=== PATIENT | male | born 1950 | race Caucasian/White ===

== ENCOUNTER 2018-10-11 08:00 | Inpatient (IN) ==
--- NOTE | 2018-10-11 09:06 | EKG Report ---
Test Performed on : 10/11/2018 08:44:57 AM Test Reason : PAT Blood Pressure : / mmHG Vent. Rate : 060 BPM Atrial Rate : 060 BPM P-R Int : 174 ms QRS Dur : 102 ms QT Int : 406 ms P-R-T Axes : 056 069 052 degrees QTc Int : 406 ms Normal sinus rhythm. Normal ECG When compared with ECG of 24-MAY-2012 11:57, No significant change was found Confirmed by Ben Escobedo MD ([id number]) on 10/11/2018 6:07:00 PM
[2018-10-11 09:15] LABS: URINE SOURCE CLEAN CATCH
[2018-10-11 09:21] LABS: BASO# 0.04 X1000 (0.0-0.2); BASO% 0.6 % (0.0-0.8); EOS# 0.23 X1000 (0.0-0.7); EOS% 3.2 % (0.0-10.0); HEMATOCRIT 51.7 % (42.0-52.0); HEMOGLOBIN 17.5 g/dL (14.0-18.0); LYMPH# 1.37 X1000 (1.2-3.4); MCH 29.6 PG (27-31); MCHC 33.8 g/dL (33-37); MCV 87.5 FL (81-99); MONO# 0.63 X1000 (0.11-0.59); MONO% 8.7 % (1.7-9.3); MPV 10.8 FL (7.4-10.4); NEUT# 4.94 X1000 (1.4-6.5); NEUT% 68.5 % (42.2-75.2); PLT 171 X1000 (130-400); RBC 5.91 XMIL (4.7-6.1); RDW 14.9 % (11.5-14.5); WBC 7.21 X1000 (4.8-10.8)
[2018-10-11 09:24] LABS: BILIRUBIN URINE NEGATIVE (NEGATIVE); BLOOD URINE NEGATIVE (NEGATIVE); COLOR YELLOW; GLUCOSE URINE NEGATIVE (NEGATIVE); KETONE URINE NEGATIVE (NEGATIVE); LEUKOCYTES URINE NEGATIVE (NEGATIVE); NITRITE URINE NEGATIVE (NEGATIVE); PH URINE 5.5; PROTEIN URINE NEGATIVE (NEGATIVE); SP GRAVITY URINE 1.018; TURBIDITY URINE CLEAR (CLEAR); UR EPITHELIAL CELLS <10 /HPF (<10); URINE BACTERIA NEGATIVE /HPF; URINE RBC <10 /HPF (<10); URINE WBC <10 /HPF (<10); UROBILINOGEN URINE NORMAL (NORMAL)
[2018-10-11 09:30] LABS: INR 0.9; PROTIME 12.8 Seconds (11.0-16.0)
[2018-10-11 09:31] LABS: PTT 27.1 Seconds (22.3-41.8)
[2018-10-11 09:49] LABS: AGAP 7; BUN 17 mg/dL (8-22); CALCIUM 9.3 mg/dL (8.8-10.2); CHLORIDE 101 mmol/L (98-107); COSMO 286; ESTIMATED GFR > 60; GLUCOSE 127 mg/dL (70-104); SODIUM 142 mmol/L (136-145); TCO2 34 mmol/L (25-35)
[2018-10-25] MEDS ORDERED: PEPCID ONE (06:54)
[2018-10-25] MEDS ORDERED: CELEBREX ONE (06:54)
[2018-10-25] MEDS ORDERED: LYRICA ONE (06:54)
[2018-10-25] MEDS ORDERED: KEFZOL 1 GM/D5W 2 GM/100 ML IVPB ONE (06:54)
[2018-10-25] MEDS ORDERED: LR 1,000 ML ONE (06:54)
[2018-10-25] MEDS ORDERED: COLACE ONE (06:54)
[2018-10-25] MEDS ORDERED: REGLAN ONE (06:54)
[2018-10-25] MEDS ORDERED: DIPRIVAN 1% ONE (07:50)
[2018-10-25] MEDS ORDERED: NORCURON ONE (07:51)
[2018-10-25] MEDS ORDERED: QUELICIN (DOSE) ONE (07:51)
[2018-10-25] MEDS ORDERED: DURAMORPH ONE (07:52)
[2018-10-25] MEDS ORDERED: TORADOL ONE (07:52)
[2018-10-25] MEDS ORDERED: MARCAINE 0.25% PF ONE (07:52)
[2018-10-25] MEDS ORDERED: NEOSPORIN G.U. IRRIGANT ONE (07:53)
[2018-10-25] MEDS ORDERED: CYKLOKAPRON 1,000 MG/NS 1,000 MG/100 ML IVPB ONE (07:53)
[2018-10-25] MEDS ORDERED: SODIUM CHLORIDE 0.9% ONE (07:53)
[2018-10-25] MEDS ORDERED: EXPAREL 1.3% ONE (07:53)
[2018-10-25] MEDS ORDERED: FENTANYL ONE ×2 (07:56→08:42)
[2018-10-25] MEDS ORDERED: SODIUM CHLORIDE 0.9% 10 ML ONE (08:21)
[2018-10-25] MEDS ORDERED: EPHEDRINE ONE (08:21)
[2018-10-25] MEDS ORDERED: ROBINUL ONE (09:15)
[2018-10-25] MEDS ORDERED: NEOSTIGMINE ONE (09:15)
[2018-10-25] MEDS ORDERED: ZOFRAN ONE (09:15)
[2018-10-25] MEDS ORDERED: D5W 1,000 ML ONE (09:49)
[2018-10-25] MEDS: DILAUDID ONE ×2 (10:12→10:21)
[2018-10-25] MEDS ORDERED: OXY IR ONE (10:25)
--- NOTE | 2018-10-25 10:29 | Diag Imaging Result Doc PS360 ---
EXAM: SHOULDER 1 VIEW LEFT 10/25/2018 HISTORY: post op TECHNIQUE: Left shoulder upright portable COMMENT: There has been a total shoulder arthroplasty. There is no evidence of acute fracture. IMPRESSION: Postsurgical changes. Electronically signed by Kayden Kumar 10/25/2018 10:27 AM
[2018-10-25] MEDS ORDERED: ZOFRAN PO PRN (11:15)
[2018-10-25] MEDS ORDERED: MORPHINE IV PRN ×3 (11:15)
[2018-10-25] MEDS ORDERED: OXY IR PO PRN (11:15)
[2018-10-25] MEDS: D5W 1,000 ML IV SCH (11:23)
--- NOTE | 2018-10-25 13:43 | OPERATIVE NOTE ---
PROCEDURE DATE: 10/25/2018 PREOPERATIVE DIAGNOSIS: Left glenohumeral arthritis with recurrent rotator cuff tear. PROCEDURE: Left reverse shoulder arthroplasty with DePuy Delta Xtend size 12 press-fit stem, 42, + 3 humeral cup, a 42 eccentric Glenosphere, and a standard Metaglene. SURGEON: Luther Burgos MD. INVESTOR RELATIONS SPECIALIST: Hayley Hernandez SECOND SALES EXPERT HOME THEATER: Hugo Hoyt and Avtar De La Cruz, physician accounting manager assistant controller student. ANESTHESIA: General. IV FLUIDS: 1100 mL lactated Ringer's. ESTIMATED BLOOD LOSS: 150 mL. COMPLICATIONS: None. INDICATIONS: The patient is a 68-year-old male with a chronic history of pain and discomfort of the left shoulder. He is status post rotator cuff repair in 2003. X-rays and MR arthrogram revealed glenohumeral arthritis with recurrent rotator cuff tear. Given patient's findings, recommendation to proceed with left reverse total shoulder arthroplasty was offered. Risks and benefits of surgery were explained, including the risks of anesthesia, , bleeding, infection, failure to relieve pain, postop stiffness, nerve injury, blood clots, and other imponderables. All questions were answered. The patient and family wish to proceed with the surgery. DETAILS OF OPERATION: The patient was taken to the operating room and placed supine on the operating table. Once adequate anesthesia was obtained, patient was placed in semi-Sanchez beach chair position. The left shoulder was subsequently prepped and draped in usual sterile fashion. A standard deltopectoral incision was made with skin knife. Hemostasis was obtained using electrocautery. The deltopectoral interval was then developed. Retractors then placed. The clavipectoral fascia was elevated and Drummond retractor was placed deep to the conjoined tendon. Attention was then turned to the subscapularis tendon. Stay suture was placed. Approximately 1 cm medial to the insertion, it was released. The shoulder was then dislocated anteriorly. Further release of the posterior superior aspect of the rotator cuff was performed. A starting reamer was then passed in the intramedullary canal. Sequential reaming was conducted up to size 12. Intramedullary proximal humeral cutting block was pinned in position. The humeral head was then resected. A small inferior osteophyte was removed with a rongeur, and a protective disk was then placed. Attention then turned to the glenoid. Circumferential dissection performed with a deep knife. A guide was then placed in position. Guide pin was placed. Reaming was then conducted. Central hole was then dilated. The guide pins removed. The wound was copiously irrigated with antibiotic pulsatile lavage. A standard Metaglene was then impacted in position. Two locking screws were placed, and two nonlocking screws had good purchase. The wound was copiously once again. A 42 eccentric Glenosphere was then placed with the eccentricity placed inferiorly. After this had been performed, attention was then turned to the proximal humerus. The intramedullary guide was placed in position. The proximal humerus was reamed. After removing this, the wound was copiously irrigated with antibiotic pulsatile lavage. A size 12 Delta Xtend press-fit stem was impacted position approximately 15 degrees of retroversion. Trial cup size 42+ 3 humeral cup had excellent stability and range of motion. Trial cup was removed. The wound was copiously irrigated once again. A 42+ 3 humeral cup was then impacted. The shoulder reduced and carried through range of motion and excellent stability and range of motion. Wound was copiously irrigated once again. Exparel was placed in the deep soft tissue. #2 FiberWire was used to repair the subscapularis tendon. Irrigation was performed once again. The remaining Exparel was placed in the remaining portion of deep soft tissue, as well as subcutaneous tissue. Final irrigation was then conducted. The 2-0 Vicryl was then used for subcutaneous tissue followed by running 2-0 Prolene. Benzoin and Steri-Strips applied. Adaptic, sterile 4 x 4, ABD pad, and tape to the left shoulder followed by shoulder immobilizer. All counts were correct. Patient tolerated procedure well, and was transferred to recovery room in stable condition. cc: Luther Burgos MD
[2018-10-25] MEDS ORDERED: CYKLOKAPRON 1,000 MG in NS 100 ML IV ONE (14:30)
[2018-10-25] MEDS: KEFZOL 2 GM/D5W 2 GM/50 ML IVPB IV SCH (15:01)
[2018-10-25] MEDS: OXY IR PO PRN ×2 (15:24→20:30)
[2018-10-25] MEDS: LOPRESSOR PO SCH ×2 (20:30→20:33)
[2018-10-25] MEDS: PERIDEX MT SCH (20:30)
[2018-10-25] MEDS ORDERED: LIPITOR PO SCH (21:00)
[2018-10-26] MEDS: D5W 1,000 ML IV SCH ×2 (00:11→02:07)
[2018-10-26] MEDS: OXY IR PO PRN ×3 (00:11→08:57)
[2018-10-26] MEDS: KEFZOL 2 GM/D5W 2 GM/50 ML IVPB IV SCH (00:11)
[2018-10-26 06:32] LABS: HEMOGLOBIN 13.6 g/dL (14.0-18.0)
[2018-10-26 06:51] LABS: AGAP 8; BUN 9 mg/dL (8-22); CALCIUM 7.9 mg/dL (8.8-10.2); CHLORIDE 98 mmol/L (98-107); COSMO 270; ESTIMATED GFR > 60; GLUCOSE 154 mg/dL (70-104); POTASSIUM 3.3 mmol/L (3.5-5.1); SODIUM 134 mmol/L (136-145); TCO2 28 mmol/L (25-35)
[2018-10-26 07:52] VITALS: BP 125/70
[2018-10-26] MEDS: PERIDEX MT SCH (08:58)
[2018-10-26] MEDS ORDERED: LOPRESSOR PO SCH (09:00)
[2018-10-26] MEDS ORDERED: ASPIRIN EC PO SCH (09:00)
--- NOTE | 2018-10-26 10:14 | ORTHOPAEDICS PROGRESS NOTE ---
DATE: 10/26/2018 SUBJECTIVE: The patient is a pleasant 68-year-old male, who is 1 day status post left reverse shoulder arthroplasty, appears currently resting comfortably. OBJECTIVE: On physical exam, patient's left shoulder dressing is intact, neurovascularly intact distally. Good paper roller strength. LABS: His hemoglobin is 13.6, hematocrit 39.0. IMPRESSION: Postoperative day #1 status post left reverse total shoulder arthroplasty. PLAN: At this point, I will discharge him home. We will arrange for outpatient physical therapy. The patient will follow up on 11/06/2018. cc: Luther Burgos MD
== END 2018-10-26 10:12 | disposition home or self-care (01) | DRG 483 ==
LOC: SURHOLD 10-25 06:27 → 4N 10-25 08:24
PROVIDERS: ADMIT Orthopaedic Surgery Adult Reconstructive Orthopaedic Surgery; ATTEND Orthopaedic Surgery Adult Reconstructive Orthopaedic Surgery
CPT/HCPCS: 73020; 80048; 81001; 85014; 85018; 85025; 85610; 85730; 86850; 86900; 86901; 93005; 93010; 94761; 94799; 97110; 97162; A9270; C9290; J0330; J0690; J1170; J1885; J2270; J2274; J2275; J2405; J3010; J7070; J7120; Q9974; S0020